=== PATIENT | female | born 2000 | race Hispanic/Latino ===

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

== ENCOUNTER 2022-02-07 23:07 | Emergency (ER) | payer BC, OTHER ==
[2022-02-08] MEDS ORDERED: Lidocaine 4% Cream 5 GM TUBE w/ Tegaderm ONE (00:16)
[2022-02-08] MEDS ORDERED: Acetaminophen 650 MG Suppository ONE (00:16)
[2022-02-08] MEDS ORDERED: Lidocaine 1% PF 5 ML VIAL ONE (00:20)
== END 2022-02-08 01:16 | disposition home or self-care (01) ==
LOC: ERS 23:07
DX: L02.31 Cutaneous abscess of buttock (principal)
CPT/HCPCS: 10060